=== PATIENT | female | born 1940 | race Caucasian/White ===

== ENCOUNTER 2018-04-08 01:58 | Observation (INO) | payer MEDICARE, BC ==
[2018-04-08] MEDS ORDERED: Sodium Chloride 0.9% 10 ML Syringe FLUSH PRN (02:04)
[2018-04-08] MEDS ORDERED: Sodium Chloride 0.9% 2.5 ML Syringe FLUSH PRN (02:04)
[2018-04-08] MEDS ORDERED: Aspirin 81 MG Tab.Chew PO ONE (02:05)
[2018-04-08] MEDS ORDERED: Diltiazem 25 MG/5 ML SDV IVPUSH ONE (02:05)
--- NOTE | 2018-04-08 02:09 | EDM.PDOC ---
ED HPI GENERAL MEDICAL PROBLEM - General Chief Complaint: Cardiovascular Problem Stated Complaint: RAPID HEARTBEAT Time Seen by Provider: 04/08/18 01:59 - History of Present Illness INITIAL COMMENTS - FREE TEXT/NARRATIVE: HISTORY AND PHYSICAL: History of present illness: The patient is a 78-year-old female who follows at [facility] with Dr. Whitley and has a history of hypertension but no cardiac disease and presents with sudden onset of rapid heartbeat that woke her from sleep at 12:30, an hour and a half ago. The patient states that she had a normal day and had no systemic complaints yesterday but she is in the process of moving her residence and her is in [facility] and is very ill so she has been under a lot of stress. The patient did not have a fever yesterday chest pain or shortness of breath and ate her meals. The patient that she went to bed normally and was asleep when she woke up with sudden onset of the rapid heart rate and she felt nauseated at the time but is currently not nauseated. She did not pass out or black out and has no chest pain or shortness of breath. She has no neurosensory changes in her extremities. Patient came here for evaluation. She has never had an irregular or rapid heartbeat in the past. The patient does not drink an excessive amount of caffeine and she has no social history. 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 Review of systems: As per history of present illness and below otherwise all systems reviewed and negative. Past medical history: As per history of present illness and as reviewed below otherwise noncontributory. Surgical history: As per history of present illness and as reviewed below otherwise noncontributory. Social history: No reported history of drug or alcohol abuse. Family history: As per history of present illness and as reviewed below otherwise noncontributory. Physical exam: General: Well-developed well-nourished thin female who is nontoxic and vital signs are noted by me. HEENT: Atraumatic, normocephalic, negative for conjunctival pallor or scleral icterus, mucous membranes moist, throat clear, neck supple, nontender, trachea midline. Lungs: Clear to auscultation, breath sounds equal bilaterally, chest nontender. Heart: S1S2, irregularly irregular rhythm and tachycardic rate of my evaluation but no overt murmur is appreciated Abdomen: Soft, nondistended, nontender. Negative for masses or hepatosplenomegaly. Hypoactive bowel sounds. Pelvis: Stable nontender. Genitourinary: Deferred. Rectal: Deferred. Extremities: Atraumatic, negative for cords or calf pain. Neurovascular unremarkable. No pedal edema or leg asymmetry Neuro: Awake, alert, oriented. Cranial nerves II through XII unremarkable. Cerebellum unremarkable. Motor and sensory unremarkable throughout. Exam nonfocal. Diagnostics: EKG 2 CBC CMP INR troponin TSH magnesium UA chest x-ray Therapeutics: IV O2 monitor IV fluids diltiazem aspirin lovenox After 10 mg of diltiazem patient's heart rate is in the 80s to 90s and I will repeat an EKG. It does occasionally jump up to 110s but not higher than that. That is only a brief jump up. I discussed with the patient all testing results and the need for observation admission to start medications for this new cardiac rhythm. I will discuss this case with Dr. Li. 0303: Case discussed with Dr. Li who accepts for observation admission and would like to be to give a dose of metoprolol tartrate 25 mg by mouth Impression: New-onset A. fib with RVR Definitive disposition and diagnosis as appropriate pending reevaluation and review of above. - Related Data Allergies Allergy/AdvReac Type Severity Reaction Status Date / Time No Known Allergies Allergy Verified 04/08/18 02:14 Home Meds: Home Meds Blood Pressure Med 04/08/18 [History] ED ROS GENERAL - Review of Systems Review Of Systems: ROS reveals no pertinent complaints other than HPI. ED EXAM, GENERAL - Physical Exam Exam: See Below (See dictation) Course - Vital Signs Last Recorded V/S: Last Vital Signs Temp 35.8 C 04/08/18 02:03 Pulse 99 04/08/18 02:50 Resp 21 H 04/08/18 02:03 BP 136/91 H 04/08/18 02:50 Pulse Ox 97 04/08/18 02:50 - Orders/Labs/Meds Orders: Active Orders 24 hr Category Date Time Status Patient Status [ADT] Stat ADT 04/08/18 03:05 Ordered Cardiac Monitoring [RC] . DIRECTED Care 04/08/18 02:04 Active EKG Documentation Completion [RC] STAT Care 04/08/18 02:04 Active EKG Documentation Completion [RC] STAT Care 04/08/18 02:41 Active Oxygen Therapy, ED [RC] ASDIRECTED Care 04/08/18 02:04 Active Pulse Oximetry [RC] ASDIRECTED Care 04/08/18 02:04 Active Chest 1V Frontal [CR] Stat Exams 04/08/18 02:04 Taken UA W/MICROSCOPIC [URIN] Stat Lab 04/08/18 02:39 Ordered Sodium Chloride 0.9% [Normal Saline] 1,000 ml Med 04/08/18 02:15 Active IV ASDIRECTED Sodium Chloride 0.9% [Saline Flush] Med 04/08/18 02:04 Active 10 ml FLUSH ASDIRECTED PRN Sodium Chloride 0.9% [Saline Flush] Med 04/08/18 02:04 Active 2.5 ml FLUSH ASDIRECTED PRN Saline Lock Insert [OM.PC] Stat Oth 04/08/18 02:04 Ordered Medication Orders Sodium Chloride (Normal Saline) 1,000 mls @ 83 mls/hr IV ASDIRECTED MIRIAN Last Admin: 04/08/18 02:21 Dose: 83 mls/hr Sodium Chloride (Saline Flush) 10 ml FLUSH ASDIRECTED PRN PRN Reason: Keep Vein Open Sodium Chloride (Saline Flush) 2.5 ml FLUSH ASDIRECTED PRN PRN Reason: Keep Vein Open Labs: Laboratory Tests 04/08/18 04/08/18 04/08/18 Range/Units 02:06 02:06 02:06 WBC 6.23 (4.0-11.0) K/uL RBC 4.89 (4.30-5.90) M/uL Hgb 15.2 (12.0-16.0) g/dL Hct 45.0 (36.0-46.0) % MCV 92.0 (80.0-98.0) fL MCH 31.1 (27.0-32.0) pg MCHC 33.8 (31.0-37.0) g/dL RDW Std Deviation 46.7 (28.0-62.0) fl RDW Coeff of Nya 14 (11.0-15.0) % Plt Count 237 (150-400) K/uL MPV 9.50 (7.40-12.00) fL Neut % (Auto) 53.6 (48.0-80.0) % Lymph % (Auto) 33.7 (16.0-40.0) % [place] % (Auto) 8.7 (0.0-15.0) % Eos % (Auto) 3.7 (0.0-7.0) % Baso % (Auto) 0.3 (0.0-1.5) % Neut # (Auto) 3.3 (1.4-5.7) K/uL Lymph # (Auto) 2.1 (0.6-2.4) K/uL [place] # (Auto) 0.5 (0.0-0.8) K/uL Eos # (Auto) 0.2 (0.0-0.7) K/uL Baso # (Auto) 0.0 (0.0-0.1) K/uL Nucleated RBC % 0.0 /100WBC Nucleated RBCs # 0 K/uL INR 0.98 Sodium 144 (136-145) mmol/L Potassium 3.6 (3.5-5.1) mmol/L Chloride 106 (98-107) mmol/L Carbon Dioxide 26.9 (21.0-32.0) mmol/L BUN 18 (7.0-18.0) mg/dL Creatinine 0.9 (0.6-1.0) mg/dL Est Cr Clr Drug Dosing 48.76 mL/min Estimated GFR (MDRD) > 60.0 ml/min Glucose 109 H (74-106) mg/dL Calcium 9.6 (8.5-10.1) mg/dL Magnesium 2.1 (1.8-2.4) mg/dL Total Bilirubin 0.4 (0.2-1.0) mg/dL AST 24 (15-37) IU/L ALT 30 (14-63) IU/L Alkaline Phosphatase 77 (46-116) U/L Troponin I < 0.050 (0.000-0.056) ng/mL Total Protein 7.5 (6.4-8.2) g/dL Albumin 4.2 (3.4-5.0) g/dL Globulin 3.3 (2.0-3.5) g/dL Albumin/Globulin Ratio 1.3 (1.3-2.8) TSH 3rd Generation 4.96 H (0.36-3.74) uIU/mL Urine Color Urine Appearance Urine pH (5.0-8.0) Ur Specific [place] (1.001-1.035) Urine Protein (NEGATIVE) mg/dL Urine Glucose (UA) (NEGATIVE) mg/dL Urine Ketones (NEGATIVE) mg/dL Urine Occult Blood (NEGATIVE) Urine Nitrite (NEGATIVE) Urine Bilirubin (NEGATIVE) Urine Urobilinogen (<2.0) EU/dL Ur Leukocyte Esterase (NEGATIVE) Urine RBC (0-2/HPF) Urine WBC (0-5/HPF) Ur Epithelial Cells (NONE-FEW) Urine Bacteria (NEGATIVE) 04/08/18 Range/Units 02:39 WBC (4.0-11.0) K/uL RBC (4.30-5.90) M/uL Hgb (12.0-16.0) g/dL Hct (36.0-46.0) % MCV (80.0-98.0) fL MCH (27.0-32.0) pg MCHC (31.0-37.0) g/dL RDW Std Deviation (28.0-62.0) fl RDW Coeff of Nya (11.0-15.0) % Plt Count (150-400) K/uL MPV (7.40-12.00) fL Neut % (Auto) (48.0-80.0) % Lymph % (Auto) (16.0-40.0) % [place] % (Auto) (0.0-15.0) % Eos % (Auto) (0.0-7.0) % Baso % (Auto) (0.0-1.5) % Neut # (Auto) (1.4-5.7) K/uL Lymph # (Auto) (0.6-2.4) K/uL [place] # (Auto) (0.0-0.8) K/uL Eos # (Auto) (0.0-0.7) K/uL Baso # (Auto) (0.0-0.1) K/uL Nucleated RBC % /100WBC Nucleated RBCs # K/uL INR Sodium (136-145) mmol/L Potassium (3.5-5.1) mmol/L Chloride (98-107) mmol/L Carbon Dioxide (21.0-32.0) mmol/L BUN (7.0-18.0) mg/dL Creatinine (0.6-1.0) mg/dL Est Cr Clr Drug Dosing mL/min Estimated GFR (MDRD) ml/min Glucose (74-106) mg/dL Calcium (8.5-10.1) mg/dL Magnesium (1.8-2.4) mg/dL Total Bilirubin (0.2-1.0) mg/dL AST (15-37) IU/L ALT (14-63) IU/L Alkaline Phosphatase (46-116) U/L Troponin I (0.000-0.056) ng/mL Total Protein (6.4-8.2) g/dL Albumin (3.4-5.0) g/dL Globulin (2.0-3.5) g/dL Albumin/Globulin Ratio (1.3-2.8) TSH 3rd Generation (0.36-3.74) uIU/mL Urine Color YELLOW Urine Appearance CLEAR Urine pH 6.5 (5.0-8.0) Ur Specific [place] <= 1.005 (1.001-1.035) Urine Protein NEGATIVE (NEGATIVE) mg/dL Urine Glucose (UA) NEGATIVE (NEGATIVE) mg/dL Urine Ketones NEGATIVE (NEGATIVE) mg/dL Urine Occult Blood TRACE-LYSED (NEGATIVE) Urine Nitrite NEGATIVE (NEGATIVE) Urine Bilirubin NEGATIVE (NEGATIVE) Urine Urobilinogen 0.2 (<2.0) EU/dL Ur Leukocyte Esterase NEGATIVE (NEGATIVE) Urine RBC 0-2 (0-2/HPF) Urine WBC 0-1 (0-5/HPF) Ur Epithelial Cells FEW (NONE-FEW) Urine Bacteria FEW (NEGATIVE) Meds: Medications Generic Name Dose Route Start Last Admin Trade Name Freq PRN Reason Stop Dose Admin Sodium Chloride 1,000 mls @ 83 mls/hr 04/08/18 02:15 04/08/18 02:21 Normal Saline IV 83 mls/hr ASDIRECTED MIRIAN Administration Sodium Chloride 10 ml 04/08/18 02:04 Saline Flush FLUSH ASDIRECTED PRN Keep Vein Open Sodium Chloride 2.5 ml 04/08/18 02:04 Saline Flush FLUSH ASDIRECTED PRN Keep Vein Open Discontinued Medications Generic Name Dose Route Start Last Admin Trade Name Freq PRN Reason Stop Dose Admin Aspirin 324 mg 04/08/18 02:05 04/08/18 02:15 Aspirin PO 04/08/18 02:06 324 mg ONETIME ONE Administration Diltiazem HCl 10 mg 04/08/18 02:05 04/08/18 02:16 Diltiazem IVPUSH 04/08/18 02:06 10 mg ONETIME ONE Administration Enoxaparin Sodium 60 mg 04/08/18 03:00 Lovenox SUBCUT 04/08/18 03:01 ONETIME ONE Metoprolol Tartrate 25 mg 04/08/18 03:05 Lopressor PO 04/08/18 03:06 ONETIME ONE Departure - Departure Time of Disposition: 03:07 Disposition: Refer to Observation Condition: Good Clinical Impression: Atrial fibrillation with RVR Referrals: PCP,None [Primary Care Provider] - Forms: ED Department Discharge - My Orders Last 24 Hours: My Active Orders 04/08/18 02:04 Cardiac Monitoring [RC] . DIRECTED EKG Documentation Completion [RC] STAT Oxygen Therapy, ED [RC] ASDIRECTED Pulse Oximetry [RC] ASDIRECTED Chest 1V Frontal [CR] Stat Sodium Chloride 0.9% [Saline Flush] 10 ml FLUSH ASDIRECTED PRN Sodium Chloride 0.9% [Saline Flush] 2.5 ml FLUSH ASDIRECTED PRN Saline Lock Insert [OM.PC] Stat 04/08/18 02:15 Sodium Chloride 0.9% [Normal Saline] 1,000 ml IV ASDIRECTED 04/08/18 02:39 UA W/MICROSCOPIC [URIN] Stat 04/08/18 02:41 EKG Documentation Completion [RC] STAT 04/08/18 03:05 Patient Status [ADT] Stat - Assessment/Plan Last 24 Hours: My Active Orders 04/08/18 02:04 Cardiac Monitoring [RC] . DIRECTED EKG Documentation Completion [RC] STAT Oxygen Therapy, ED [RC] ASDIRECTED Pulse Oximetry [RC] ASDIRECTED Chest 1V Frontal [CR] Stat Sodium Chloride 0.9% [Saline Flush] 10 ml FLUSH ASDIRECTED PRN Sodium Chloride 0.9% [Saline Flush] 2.5 ml FLUSH ASDIRECTED PRN Saline Lock Insert [OM.PC] Stat 04/08/18 02:15 Sodium Chloride 0.9% [Normal Saline] 1,000 ml IV ASDIRECTED 04/08/18 02:39 UA W/MICROSCOPIC [URIN] Stat 04/08/18 02:41 EKG Documentation Completion [RC] STAT 04/08/18 03:05 Patient Status [ADT] Stat
[2018-04-08] MEDS ORDERED: Sodium Chloride 0.9% 1,000 ML IV SCH (02:15)
[2018-04-08 02:48] LABS: CHLORIDE,CL 106 mmol/L (98-107); SODIUM,NA 144 mmol/L (136-145)
[2018-04-08] MEDS ORDERED: Enoxaparin 60 MG/0.6 ML Syringe SUBCUT ONE (03:00)
[2018-04-08] MEDS ORDERED: Metoprolol Tartrate 25 MG Tab PO ONE (03:05)
[2018-04-08] MEDS ORDERED: Potassium Chloride 20 MEQ Packet PO ONE (04:30)
[2018-04-08] MEDS ORDERED: Potassium Chloride 20 MEQ Tab.ER PO ONE (04:57)
[2018-04-08] MEDS: Sodium Chloride 0.9% 1,000 ML IV SCH ×2 (06:49→08:18)
[2018-04-08] MEDS ORDERED: Metoprolol Tartrate 25 MG Tab PO SCH (09:00)
--- NOTE | 2018-04-08 09:56 | PCM.HP ---
H&P History of Present Illness - General Date of Service: 04/08/18 Admit Problem/Dx: Admission Diagnosis/Problem Admission Diagnosis/Problem Atrial fibrillation - History of Present Illness Initial Comments - Free Text/Narative: 78 yo female with pmh of hypertension who presents to the ED after waking up with palpitations. She denies any chest pain, shortness of breath or lightheadedness. She was noted to be in atrial fibrillation with RVR and was given IV diltiazem which rated controlled her. She was given 25mg of Metoprolol as well. She has converted to normal sinus. She denies a history of atrial fibrillation or palpitations. 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: - Infectious Disease History Infectious Disease History: Reports: Chicken Pox, Measles, Mumps - Past Surgical History HEENT Surgical History: Reports: Tonsillectomy, Other (See Below) Other HEENT Surgeries/Procedures: eyelids shortened Cardiovascular Surgical History: Reports: None Female Surgical History: Reports: Hysterectomy Social & Family History - Family History Family Medical History: Noncontributory - Tobacco Use Smoking Status *Q: Never Smoker Second Hand Smoke Exposure: No - Caffeine Use Caffeine Use: Reports: Coffee, Soda - Recreational Drug Use Recreational Drug Use: No H&P Review of Systems - Review of Systems: Review Of Systems: ROS reveals no pertinent complaints other than HPI. Exam - Exam Exam: See Below - Vital Signs Vital Signs: Last Vital Signs Temp 37.4 C 04/08/18 07:57 Pulse 77 04/08/18 08:01 Resp 14 04/08/18 07:57 BP 142/68 H 04/08/18 08:01 Pulse Ox 97 04/08/18 07:57 Weight: 59 kg - Exam General: Alert, Oriented Lungs: Clear to Auscultation, Normal Respiratory Effort Cardiovascular: Regular Rate, Regular Rhythm GI/Abdominal Exam: Normal Bowel Sounds, Soft, Non-Tender Extremities: Non-Tender, No Pedal Edema Skin: Warm, Dry, Intact Neurological: No: Focal Deficit - Patient Data Lab Results Last 24 hrs: Laboratory Results - last 24 hr 04/08/18 04/08/18 04/08/18 Range/Units 02:06 02:06 02:06 WBC 6.23 (4.0-11.0) K/uL RBC 4.89 (4.30-5.90) M/uL Hgb 15.2 (12.0-16.0) g/dL Hct 45.0 (36.0-46.0) % MCV 92.0 (80.0-98.0) fL MCH 31.1 (27.0-32.0) pg MCHC 33.8 (31.0-37.0) g/dL RDW Std Deviation 46.7 (28.0-62.0) fl RDW Coeff of Nya 14 (11.0-15.0) % Plt Count 237 (150-400) K/uL MPV 9.50 (7.40-12.00) fL Neut % (Auto) 53.6 (48.0-80.0) % Lymph % (Auto) 33.7 (16.0-40.0) % [place] % (Auto) 8.7 (0.0-15.0) % Eos % (Auto) 3.7 (0.0-7.0) % Baso % (Auto) 0.3 (0.0-1.5) % Neut # (Auto) 3.3 (1.4-5.7) K/uL Lymph # (Auto) 2.1 (0.6-2.4) K/uL [place] # (Auto) 0.5 (0.0-0.8) K/uL Eos # (Auto) 0.2 (0.0-0.7) K/uL Baso # (Auto) 0.0 (0.0-0.1) K/uL Nucleated RBC % 0.0 /100WBC Nucleated RBCs # 0 K/uL INR 0.98 Sodium 144 (136-145) mmol/L Potassium 3.6 (3.5-5.1) mmol/L Chloride 106 (98-107) mmol/L Carbon Dioxide 26.9 (21.0-32.0) mmol/L BUN 18 (7.0-18.0) mg/dL Creatinine 0.9 (0.6-1.0) mg/dL Est Cr Clr Drug Dosing 48.76 mL/min Estimated GFR (MDRD) > 60.0 ml/min Glucose 109 H (74-106) mg/dL Calcium 9.6 (8.5-10.1) mg/dL Magnesium 2.1 (1.8-2.4) mg/dL Total Bilirubin 0.4 (0.2-1.0) mg/dL AST 24 (15-37) IU/L ALT 30 (14-63) IU/L Alkaline Phosphatase 77 (46-116) U/L Troponin I < 0.050 (0.000-0.056) ng/mL Total Protein 7.5 (6.4-8.2) g/dL Albumin 4.2 (3.4-5.0) g/dL Globulin 3.3 (2.0-3.5) g/dL Albumin/Globulin Ratio 1.3 (1.3-2.8) TSH 3rd Generation 4.96 H (0.36-3.74) uIU/mL Urine Color Urine Appearance Urine pH (5.0-8.0) Ur Specific [place] (1.001-1.035) Urine Protein (NEGATIVE) mg/dL Urine Glucose (UA) (NEGATIVE) mg/dL Urine Ketones (NEGATIVE) mg/dL Urine Occult Blood (NEGATIVE) Urine Nitrite (NEGATIVE) Urine Bilirubin (NEGATIVE) Urine Urobilinogen (<2.0) EU/dL Ur Leukocyte Esterase (NEGATIVE) Urine RBC (0-2/HPF) Urine WBC (0-5/HPF) Ur Epithelial Cells (NONE-FEW) Urine Bacteria (NEGATIVE) 04/08/18 04/08/18 Range/Units 02:39 08:12 WBC (4.0-11.0) K/uL RBC (4.30-5.90) M/uL Hgb (12.0-16.0) g/dL Hct (36.0-46.0) % MCV (80.0-98.0) fL MCH (27.0-32.0) pg MCHC (31.0-37.0) g/dL RDW Std Deviation (28.0-62.0) fl RDW Coeff of Nya (11.0-15.0) % Plt Count (150-400) K/uL MPV (7.40-12.00) fL Neut % (Auto) (48.0-80.0) % Lymph % (Auto) (16.0-40.0) % [place] % (Auto) (0.0-15.0) % Eos % (Auto) (0.0-7.0) % Baso % (Auto) (0.0-1.5) % Neut # (Auto) (1.4-5.7) K/uL Lymph # (Auto) (0.6-2.4) K/uL [place] # (Auto) (0.0-0.8) K/uL Eos # (Auto) (0.0-0.7) K/uL Baso # (Auto) (0.0-0.1) K/uL Nucleated RBC % /100WBC Nucleated RBCs # K/uL INR Sodium (136-145) mmol/L Potassium (3.5-5.1) mmol/L Chloride (98-107) mmol/L Carbon Dioxide (21.0-32.0) mmol/L BUN (7.0-18.0) mg/dL Creatinine (0.6-1.0) mg/dL Est Cr Clr Drug Dosing mL/min Estimated GFR (MDRD) ml/min Glucose (74-106) mg/dL Calcium (8.5-10.1) mg/dL Magnesium (1.8-2.4) mg/dL Total Bilirubin (0.2-1.0) mg/dL AST (15-37) IU/L ALT (14-63) IU/L Alkaline Phosphatase (46-116) U/L Troponin I < 0.050 (0.000-0.056) ng/mL Total Protein (6.4-8.2) g/dL Albumin (3.4-5.0) g/dL Globulin (2.0-3.5) g/dL Albumin/Globulin Ratio (1.3-2.8) TSH 3rd Generation (0.36-3.74) uIU/mL Urine Color YELLOW Urine Appearance CLEAR Urine pH 6.5 (5.0-8.0) Ur Specific [place] <= 1.005 (1.001-1.035) Urine Protein NEGATIVE (NEGATIVE) mg/dL Urine Glucose (UA) NEGATIVE (NEGATIVE) mg/dL Urine Ketones NEGATIVE (NEGATIVE) mg/dL Urine Occult Blood TRACE-LYSED (NEGATIVE) Urine Nitrite NEGATIVE (NEGATIVE) Urine Bilirubin NEGATIVE (NEGATIVE) Urine Urobilinogen 0.2 (<2.0) EU/dL Ur Leukocyte Esterase NEGATIVE (NEGATIVE) Urine RBC 0-2 (0-2/HPF) Urine WBC 0-1 (0-5/HPF) Ur Epithelial Cells FEW (NONE-FEW) Urine Bacteria FEW (NEGATIVE) Result Diagrams: 04/08/18 02:06 04/08/18 02:06 Problem List Initiated/Reviewed/Updated: Yes Orders Last 24hrs: Active Orders 24 hr Category Date Time Status Patient Status [ADT] Stat ADT 04/08/18 03:05 Active Cardiac Monitoring [RC] Q8H Care 04/08/18 03:10 Active EKG Documentation Completion [RC] STAT Care 04/08/18 02:04 Active EKG Documentation Completion [RC] STAT Care 04/08/18 02:41 Active Oxygen Therapy, ED [RC] ASDIRECTED Care 04/08/18 02:04 Active Pulse Oximetry [RC] ASDIRECTED Care 04/08/18 02:04 Active Ready for Discharge [RC] PER UNIT ROUTINE Care 04/08/18 09:52 Ordered Regular Diet [DIET] Diet 04/08/18 Breakfast Active Chest 1V Frontal [CR] Stat Exams 04/08/18 02:04 Taken TROPONIN I [CHEM] Q6H Lab 04/08/18 14:06 Ordered UA W/MICROSCOPIC [URIN] Stat Lab 04/08/18 02:39 Ordered Metoprolol Tartrate [Lopressor] Med 04/08/18 09:00 Active 25 mg PO BID Sodium Chloride 0.9% [Normal Saline] 1,000 ml Med 04/08/18 04:45 Active IV ASDIRECTED Sodium Chloride 0.9% [Saline Flush] Med 04/08/18 02:04 Active 10 ml FLUSH ASDIRECTED PRN Sodium Chloride 0.9% [Saline Flush] Med 04/08/18 02:04 Active 2.5 ml FLUSH ASDIRECTED PRN Saline Lock Insert [OM.PC] Stat Oth 04/08/18 02:04 Ordered Medication Orders Sodium Chloride (Normal Saline) 1,000 mls @ 83 mls/hr IV ASDIRECTED [facility] Last Admin: 04/08/18 08:18 Dose: 83 mls/hr Infusion: 04/08/18 08:18 Dose: 83 mls/hr Admin: 04/08/18 06:49 Dose: 83 mls/hr Metoprolol Tartrate (Lopressor) 25 mg PO BID [facility] Last Admin: 04/08/18 08:01 Dose: 25 mg Sodium Chloride (Saline Flush) 10 ml FLUSH ASDIRECTED PRN PRN Reason: Keep Vein Open Sodium Chloride (Saline Flush) 2.5 ml FLUSH ASDIRECTED PRN PRN Reason: Keep Vein Open Assessment/Plan Comment:: 78 yo female admitted for atrial fibrillation with RVR. She has since converted to normal sinus rhythm. She is to be discharged home. Her home dose of Metorpol XL was increased to 100mg daily. She was instructed to start taking daily aspirin. She is to follow up with Dr. Linton.
--- NOTE | 2018-04-09 17:08 | CR ---
EXAM DATE: 04/08/18 PATIENT'S AGE: 78 Patient: BRAN YEE Facility: [place], [place] Site . Site : 1940 Study: XRay Chest [id number]/15/2018 2:35:31 AM Ordering Physician: Charlie Hdz Final Report: INDICATION: chest pain, shortness of breath CHEST, ONE VIEW An AP radiograph of the chest was performed. Comparison: No previous studies are currently available for comparison. The lungs appear clear and no pleural effusions are identified. The cardiomediastinal silhouette and pulmonary vasculature appear normal, as do the visualized bones. IMPRESSION: No acute intrathoracic abnormality identified. ADELITA ABRAHAM MD [employer] [employer] Dictated by: Doe Abraham MD @ 04/08/2018 02:44:01 (Electronic Signature) Report Signed by Proxy. [facility]
== END 2018-04-08 10:52 | disposition home or self-care (01) ==
LOC: MW.ED 01:58 → MW.MS 03:05
PROVIDERS: ADMIT Internal Medicine; ATTEND Internal Medicine
DX: I48.91 Unspecified atrial fibrillation (principal); I10 Essential (primary) hypertension; E78.00 Pure hypercholesterolemia, unspecified; Z79.82 Long term (current) use of aspirin; Z79.899 Other long term (current) drug therapy
CPT/HCPCS: 36415; 71045; 80053; 81001; 83735; 84443; 84484; 85025; 85610; 93005; 96361; 96372; 96374; 99285; A9270; G0378; J1650; J3490; J7040